=== PATIENT | male | born 1955 | race Caucasian/White ===

== ENCOUNTER → 2017-12-14 18:22 | Outpatient (REF) | payer BC, SELFPAY | LOC: LAB 18:22 | PROVIDERS: Visit Provider Physician Assistant | DX: L02.232 Carbuncle of back [any part, except buttock and flank] (principal) | CPT/HCPCS: 87070; 87075; 87077; 87147; 87205 ==

== ENCOUNTER → 2018-01-24 13:45 | Outpatient (CLI) | payer BC, SELFPAY ==
[2018-01-24 15:27] LABS: Add Manual Diff / Slide Review NO; Basophils Percent Auto 1.1 % (0-2); Eosinophils Percent Auto 0.7 % (2-4); Hematocrit 45.1 % (41-53); Hemoglobin 15.2 g/dL (13.5-17.5); Lymphocytes Percent Auto 14.6 % (25-40); Mean Corpuscular HGB Conc 33.7 % (30-36); Mean Corpuscular Volume 86.1 fL (80-100); Monocytes Percent Auto 6.2 % (3-14); Neutrophils Absolute Auto 7800 /uL (3000-5900); Neutrophils Percent Auto 77.4 % (50-75); Platelet Count 324 X10^3/uL (150-400); Red Blood Cell Count 5.24 X10^6/uL (4.5-5.9); Red Cell Distribution Width 13.1 % (11.6-14.8); White Blood Cell Count 10.1 X10^3/uL (4.5-11.0)
[2018-01-24 16:09] LABS: Alanine Aminotransferase 40 IU/L (21-72); Albumin 5.3 g/dL (3.5-5.0); Albumin Globulin Ratio 1.7 (1.0-2.8); Aspartate Aminotransferase 28 IU/L (17-59); Bilirubin Total 0.9 mg/dL (0.2-1.3); Blood Urea Nitrogen 19 mg/dL (9-20); Calcium 9.4 mg/dL (8.4-10.2); Carbon Dioxide 22 mmol/L (22-32); Chloride 97 mmol/L (98-107); Cholesterol 248 mg/dL (140-199); Estimated Glomerular Filt Rate > 60.0 mL/min (>60); Globulin 3.1 g/dL (1.7-4.1); Glucose 150 mg/dL (80-110); HDL Cholesterol 54 mg/dL (40-60); LDL Cholesterol Calculated 176 mg/dL (<100); Potassium 4.5 mmol/L (3.4-5.1); Sodium 137 mmol/L (137-145); Total Protein 8.4 g/dL (6.3-8.2); Triglycerides 88 mg/dL (35-150)
[2018-01-24 16:22] LABS: Alkaline Phosphatase 77 U/L (38-126); HEMOLYSIS < 15 (0-50)
[2018-01-24 16:36] LABS: Thyroid Stimulating Hormone 0.78 uIU/mL (0.47-4.68)
[2018-01-24 16:41] LABS: Cortisol Random 11.9 ug/dL
== END ==
PROVIDERS: Visit Provider Internal Medicine
DX: E11.9 Type 2 diabetes mellitus without complications (principal); E78.2 Mixed hyperlipidemia; Z00.00 Encounter for general adult medical examination without abnormal findings
CPT/HCPCS: 36415; 80053; 80061; 82533; 84153; 84443; 85025

== ENCOUNTER → 2018-07-13 09:53 | Outpatient (CLI) | payer BC, SELFPAY ==
--- NOTE | 2018-07-13 11:46 | DIET.PN ---
DIABETES Nutrition Initial Assessment:? ASSESS:?? 62 yom referred for type 2 diabetes. Pt is has recently started making dietary changes including cutting down on fast food and starches. Reports recent weight loss related to dietary changes since being diagnosed with diabetes. He does not have a glucometer and presents partially noncompliant with the discussion of daily BG monitoring; although very compliant with recommendations to dietary and physical activity changes. LABS: Per pt report:? A1c: 7.5 per patient recall (no A1c found in medical records) ? MEDS:?? n/a ? DIET: Has cut out most fast food and starches ? Weight: 209# (reports 15# wt loss) ? Exercise:? leisure walking 1hr/day NUTRITION DX 1. Altered Nutrition related labs related to impaired glucose metabolism, lack of previous exposure to accurate nutrition information as evidenced by pt report, dx of diabetes, previous diet high in refined carbohydrates.? INTERVENTION(s): 1. Discussed pathophysiology of diabetes. Reviewed A1c and its correlation to blood glucose numbers. Discussed recommended BG ranges. 2. Discussed importance of self-monitoring, how often, and when to check. Provided demonstration on use of glucometer. 3. Reviewed hyper/hypoglycemia and treatment. 4. Reviewed safe disposal of equipment (strip/lancets/insulin needles). 5. Discussed impact of nutrition/diet on blood sugar control.? Discussed fed versus non-fed state.?? 6. Discussed the effect of carbohydrates/protein/fat on blood sugar control.? Stressed importance of consistent carbohydrate intake at each meal and provided instructions for recommended servings/portions of carbohydrates/protein per meal. Provided pt with educational material. 7. Reviewed carbohydrate counting and measuring carbohydrate content via serving sizes and reading nutrition labels.? Provided handouts.?? 8. Discussed the difference between simple versus complex carbohydrates and the effect of fiber on blood sugar control.? Discussed various methods to increase fiber content in diet. 9. Stressed importance of meal timing and not going >4-5 hours between meals. Encouraged adding protein to each meal to support glucose control. Provided list of protein foods. Discussed best protein options for heart health and to alleviate hunger. Patient agreeable. 10. Discussed healthy weight loss through diet and exercise to increase lean muscle mass.? Pt agreeable to moderate-vigorous walking daily. MONITOR/EVALUATE: Anticipate good compliance.? Nutrition follow up schedule for 1 mo to review BG, weight, food record and discuss protein/fat.
== END ==
PROVIDERS: Visit Provider Internal Medicine
DX: E11.9 Type 2 diabetes mellitus without complications (principal)
CPT/HCPCS: 97802

== ENCOUNTER → 2019-11-23 07:52 | Outpatient (CLI) | payer OTHER, SELFPAY ==
[2019-11-23 10:03] LABS: BUN Creatinine Ratio 17.4 (6-22); Blood Urea Nitrogen 16 mg/dL (9-20); Calcium 9.5 mg/dL (8.4-10.2); Carbon Dioxide 24 mmol/L (22-32); Chloride 103 mmol/L (98-107); Cholesterol 171 mg/dL (140-199); Estimated Glomerular Filt Rate > 60.0 mL/min (>60); Glucose 149 mg/dL (80-110); HDL Cholesterol 54 mg/dL (40-60); HEMOLYSIS < 15 (0-50); LDL Cholesterol Calculated 91 mg/dL (<100); Potassium 4.4 mmol/L (3.4-5.1); Sodium 136 mmol/L (137-145); Triglycerides 129 mg/dL (35-150)
[2019-11-23 10:32] LABS: Prostate Specific Antigen Scrn 2.97 ng/mL (0.1-4.0)
== END ==
PROVIDERS: PCP Student in an Organized Health Care Education/Training Program; Referring Provider Student in an Organized Health Care Education/Training Program; Visit Provider Student in an Organized Health Care Education/Training Program
DX: Z12.5 Encounter for screening for malignant neoplasm of prostate (principal); E78.2 Mixed hyperlipidemia
CPT/HCPCS: 36415; 80048; 80061; G0103

== ENCOUNTER → 2020-10-27 16:10 | Outpatient (CLI) | payer OTHER, SELFPAY ==
[2020-10-27 16:58] LABS: BUN Creatinine Ratio 20.5 (6-22); Blood Urea Nitrogen 18 mg/dL (9-20); Calcium 9.1 mg/dL (8.4-10.2); Carbon Dioxide 24 mmol/L (22-32); Chloride 102 mmol/L (98-107); Estimated Glomerular Filt Rate > 60.0 mL/min (>60); Glucose 180 mg/dL (80-110); HEMOLYSIS < 15 (0-50); Potassium 3.8 mmol/L (3.4-5.1); Sodium 135 mmol/L (137-145)
[2020-10-27 17:31] LABS: Prostate Specific Antigen Scrn 3.14 ng/mL (0.1-4.0)
== END ==
PROVIDERS: PCP Student in an Organized Health Care Education/Training Program; Referring Provider Student in an Organized Health Care Education/Training Program; Visit Provider Student in an Organized Health Care Education/Training Program
DX: Z12.5 Encounter for screening for malignant neoplasm of prostate (principal); I10 Essential (primary) hypertension
CPT/HCPCS: 36415; 80048; G0103

== ENCOUNTER 2021-06-01 16:11 | Emergency (ER) | payer OTHER, SELFPAY ==
[2021-06-01 16:15] VITALS: BP 142/70; PULSE 86; RESP 18; TEMP 36.2; O2SAT 98; BMI 30.1
--- NOTE | 2021-06-01 19:08 | ED.FALL ---
HPI - Fall General Chief Complaint: Fall Stated Complaint: Fell, hit head on stone steps Time Seen by Provider: 06/01/21 18:23 Source: patient Mode of arrival: Ambulatory History of Present Illness HPI Narrative: 65-year-old male former smoker with history of hypertension and hyperlipidemia presents with his for evaluation of a ground level fall with facial lacerations. He was walking outside and his feet became entangled in a cannabis tarp and he fell forward into some stone steps. He struck his forehead on the ground and suffered lacerations as mentioned. He does not take blood thinners denies loss of consciousness nor nausea or vomiting. He has been acting at baseline per his own admission and this is verified by his . He denies any neck or back pain. He denies any numbness, tingling or weakness of extremities. Related Data Previous Rx's Medication Instructions Recorded felodipine 10 mg tablet,extended 10 mg PO DAILY #90 tab 10/27/20 release 24 hr lisinopril 20 mg tablet 20 mg PO DAILY #90 tab 10/27/20 omeprazole 20 mg capsule,delayed 20 mg PO DAILY #90 cap 10/27/20 release rosuvastatin 10 mg tablet 10 mg PO DAILY #90 tab 11/02/20 Allergies Allergy/AdvReac Type Severity Reaction Status Date / Time No Known Drug Allergies Allergy Verified 06/01/21 16:22 Review of Systems Review of Systems Narrative: GENERAL: Denies chills, fatigue, malaise, fever, sweats. HEENT: Denies sinus pain, ear pain, sore throat, difficulty swallowing, dizziness. RESPIRATORY: Denies dyspnea, cough, wheezing, hemoptysis, sputum. CARDIOVASCULAR: Denies chest pain, palpitations, orthopnea, edema, GASTROINTESTINAL: Denies nausea, vomiting, abdominal pain, diarrhea, constipation, melena. : Denies dysuria, frequency, incontinence, hematuria, urinary retention. MUSCULOSKELETAL: denies weakness, joint pain, or bony pain SKIN:see HPI NEUROLOGIC: Denies weakness, headache, numbness, change in speech, confusion, seizures, incoordination. PSYCHIATRIC: No concerning psychosocial issues. 12 point review of systems is negative except for those stated above Patient History Social History Smoking Status: Former smoker Smoking Status: Former smoker alcohol intake frequency: a few times a week Substance Use Type: does not use Exam Narrative Exam Narrative: GENERAL: [65] year old patient appears stated age. Well-developed patient, in mild distress. GCS 15 HEAD: Forehead injury noted including 3 lacerations, no evidence of depressed skull fracture or hematoma. Laceration 1. In the midline runs parallel to Naa's lines and measures 3 cm, this is deep with active bleeding, no evidence of foreign body. Laceration 2. Measures 0.5 cm in central forehead. Laceration 3. Is deep, regular with active bleeding measuring 3 cm without evidence of foreign body EYES: Pupils equal round and reactive. Extraocular motions intact. No scleral icterus. No injection or drainage. ENT: Nose without bleeding, purulent drainage. Throat without erythema, tonsillar hypertrophy or exudate. Airway patent. NECK: Trachea midline. Non tender CARDIOVASCULAR: Regular rate and rhythm without murmurs, gallops, or rubs. RESPIRATORY: Clear to auscultation. Breath sounds equal bilaterally. No wheezes, rales, or rhonchi. GASTROINTESTINAL: Abdomen soft, non-tender, nondistended. EXTREMITIES: No edema or joint tenderness. BACK: Nontender without deformity or crepitance. No flank tenderness. NEURO: AOx3. SKIN: No rash or erythema of visible areas Initial Vital Signs Initial Vital Signs: Vital Signs Temperature 97.2 F L 06/01/21 16:15 Pulse Rate 86 06/01/21 16:15 Respiratory Rate 18 06/01/21 16:15 Blood Pressure 142/70 H 06/01/21 16:15 Pulse Oximetry 98 06/01/21 16:15 Procedures Laceration Repair Laceration 1: Site: face Size (cm): 3 Description: irregular and clean Depth: involves muscle layer Local Anesthetic: lidocaine 1% and with bicarb Amount of anesthesia used (mL): 4 Pre-repair: wound explored and deep structures intact Skin layer closed with: nylon Size (cm): 6-0 Number of sutures: 8 Technique: simple, interrupted Subcutaneous layer closed with: vicryl Size: 4-0 Number of sutures: 2 Technique: simple, interrupted Laceration 2: Site: face Size (cm): 0.5 Description: linear Depth: simple, single layer Local Anesthetic: lidocaine 1% and with bicarb Amount of anesthesia used (mL): 2 Pre-repair: wound explored and deep structures intact Skin layer closed with: nylon Size (cm): 6-0 Number of sutures: 1 Technique: simple, interrupted Laceration 3: Site: face Side (If applicable): left Size (cm): 3 Description: irregular Depth: involves muscle layer Local Anesthetic: lidocaine 1% and with bicarb Amount of anesthesia used (mL): 4 Pre-repair: wound explored Skin layer closed with: nylon Size (cm): 6-0 Number of sutures: 7 Technique: simple, interrupted Subcutaneous layer closed with: vicryl Size: 4-0 Number of sutures: 2 Technique: simple, interrupted Scores Green[place]ic CT Head Rule Age <16 years old: No Patient on blood thinners: No Seizure after injury: No Exclusion: Patient NOT Excluded, Proceed to next steps GCS < 15 at 2 hr post trauma: No Suspected open or depressed skull fracture: No Any sign of basilar skull fracture (hemotympanum, raccoon eyes, Dailey's sign, CSF henry-/rhinorrhea): No Two or more episodes of vomiting: No Age greater or equal to 65 years: No Retrograde amnesia to the event greater or equal to 30 min: No Dangerous Mechanism (pedestrian vs. mv, occupant ejected from mv, fall from >3 ft or > 5 stairs): No Recommendation: CT unnecessary Course Orders Ordered: Discontinued Medications Lidocaine/Sodium Bicarbonate (Lido 1%/Sod Bicarb 8.4% (10ml) 10 Ml Syringe) 10 ml INJ NOW ONE Stop: 06/01/21 19:14 Last Admin: 06/01/21 19:17 Dose: 10 ml Documented by: KPETERSON Vital Signs Vital signs: Vital Signs - 8 hr 06/01/21 16:15 06/01/21 20:03 Temperature 97.2 F L Pulse Rate 86 74 Respiratory Rate 18 Blood Pressure 142/70 H 140/85 Pulse Oximetry 98 99 Discharge Plan Departure Patient Disposition: Home Clinical Impression: Complex laceration of face Instructions: DI for Laceration Repair -- Complex, How to Prevent Falls Activity Restrictions/Additional Instructions: *You have been diagnosed with [facial contusion with multiple lacerations ] *What to do: *Please continue to take your regular medications as directed. [ ] New medication prescriptions sent to your pharmacy: [ ] [ ] New medication written as a paper prescription [x ] No new medications given * Please keep the wound clean and dry to the best of your ability. Please monitor for signs of infection such as redness to the skin or increasing pain. Have the sutures/jeanie removed by your doctor in about 7 days. If you are unable to get into your doctor, we would be happy to remove the sutures/jeanie in that same timeframe. *If you do not have a primary care provider please contact the [facility] Resource line at [phone]. They will ask some questions about your medical history and help get you set up with a doctor in the community. *Return to Emergency Department if you should have any new, worsening or concerning symptoms, such as [fever greater than 101 F, shaking chills, worsening pain, persistent vomiting or other bothersome symptoms] Prescriptions: No Action felodipine 10 mg tablet extended release 24 hr 10 mg PO DAILY Qty: 90 3RF lisinopril 20 mg tablet 20 mg PO DAILY Qty: 90 3RF omeprazole 20 mg capsule,delayed release(DR/EC) 20 mg PO DAILY Qty: 90 3RF rosuvastatin 10 mg tablet 10 mg PO DAILY Qty: 90 3RF Referrals: Sixto Currie MD [Primary Care Provider] -
[2021-06-01] MEDS: LIDO 1%/SOD BICARB 8.4% (10ML) 10 ML SYRINGE INJ (19:17)
[2021-06-01 20:03] VITALS: BP 140/85; PULSE 74; O2SAT 99
== END 2021-06-01 20:00 | disposition home or self-care (01) ==
PROVIDERS: Emergency Provider Emergency Medicine; PCP Student in an Organized Health Care Education/Training Program
DX: S01.81XA Laceration without foreign body of other part of head, initial encounter (principal); W01.198A Fall on same level from slipping, tripping and stumbling with subsequent striking against other object, initial encounter
CPT/HCPCS: 12011; 13132; 99282; 99283

== ENCOUNTER → 2022-02-01 08:25 | Outpatient (CLI) | payer MEDICARE, OTHER, SELFPAY ==
[2022-02-01 09:26] LABS: Hemoglobin A1C% w Est Avg Glu 9.6 % (4.0-6.0)
[2022-02-01 09:30] LABS: Alanine Aminotransferase 36 IU/L (<50); Albumin 4.8 g/dL (3.5-5.0); Albumin Globulin Ratio 1.3 (1.0-2.8); Alkaline Phosphatase 89 U/L (38-126); Aspartate Aminotransferase 39 IU/L (17-59); BUN Creatinine Ratio 16.8 (6-22); Bilirubin Total 0.6 mg/dL (0.2-1.3); Blood Urea Nitrogen 16 mg/dL (9-20); Calcium 8.9 mg/dL (8.4-10.2); Carbon Dioxide 21 mmol/L (22-32); Chloride 101 mmol/L (98-107); Estimated Glomerular Filt Rate > 60 mL/min (>60); Globulin 3.6 g/dL (1.7-4.1); Glucose 242 mg/dL (80-110); HEMOLYSIS < 15 (0-50); Potassium 4.2 mmol/L (3.4-5.1); Sodium 136 mmol/L (137-145); Total Protein 8.4 g/dL (6.3-8.2)
[2022-02-01 10:00] LABS: Prostate Specific Antigen Scrn 3.58 ng/mL (0.1-4.0)
[2022-02-01 10:43] LABS: Hep C Virus Ab w/Reflex Quant NEGATIVE s/c (NEGATIVE)
== END ==
PROVIDERS: PCP Student in an Organized Health Care Education/Training Program; Referring Provider Student in an Organized Health Care Education/Training Program; Visit Provider Student in an Organized Health Care Education/Training Program
DX: R73.9 Hyperglycemia, unspecified (principal); Z12.5 Encounter for screening for malignant neoplasm of prostate; E78.2 Mixed hyperlipidemia; I10 Essential (primary) hypertension; Z11.59 Encounter for screening for other viral diseases
CPT/HCPCS: 36415; 80053; 83036; 86803; G0103

== ENCOUNTER → 2022-02-04 09:25 | Outpatient (CLI) | payer MEDICARE, OTHER, SELFPAY ==
[2022-02-07 16:23] LABS: Fecal Immunochemical Test Negative (Negative)
== END ==
PROVIDERS: PCP Student in an Organized Health Care Education/Training Program; Referring Provider Student in an Organized Health Care Education/Training Program; Visit Provider Student in an Organized Health Care Education/Training Program
DX: Z12.11 Encounter for screening for malignant neoplasm of colon (principal)
CPT/HCPCS: 82274

== ENCOUNTER → 2022-05-03 10:46 | Outpatient (CLI) | payer MEDICARE, OTHER, SELFPAY ==
--- NOTE | 2022-05-11 11:10 | DIAB.MNT ---
Initial Diabetes Medical Nutrition Therapy Assessment Name: Jhony Rosario Date: 05/03/22 Time: 11-140a Dx: Type II Diabetes Provider: Roseyjeremiah Booker presents for initial diabetes visit. Saw previous CDCES in 2019. States he has no symptoms of DM or pressing concerns, though has HgA1c of 9.6% as of Jan 2022. States he is good at weight loss and intends to do so. Does not like fish of any kind. usually eats 2-3x per day. Limited water intake per report. Diet coke 5 x 12oz cans per day. Diet Recall: 8-10a: overnight oats x 2c with banana, coconut 1130a: nothing or turkey sandwich 6p: cheeseburger OR chicken teriyaki with pea and rice x 1c OR pasta Anthropometrics: Ht: 5'10 Wt: 212# last PCP Physical Activity:60+ min walks daily. sit-ups q day Self-Monitoring Blood Glucose: None. With recent HgA1c may benefit from SMBG. Diabetes Medications: 500mg Metformin BID Pertinent Labs: 01/2022 HgA1c: 9.6% no new lipids Nutrition Rx: Plate Method Nutrition Diagnosis: - Food and nutrition related knowledge deficit r/t limited MNT hx aeb one visit with last CDCES - Excessive CHO intake r/t nutrition knowledge deficit aeb pt report and diet recall - Self monitoring deficit r/t knowledge deficit aeb pt report Intervention: This participant was very receptive. Provided appropriate educational handouts. Discussed the following topics: Completed intake assessment. Discussed barriers to care. Pathophysiology of T2DM HgA1c, its correlation to blood glucose numbers, and rationale for goal Importance of self-monitoring, how often, and when to check. Suggested checking at different times to evaluate meals Plate Method, impact of macronutrients on blood sugar, meal timing, carbohydrate counting, pairing macronutrients and spreading out carbohydrates for better blood glucose management Recommended servings for carbohydrates at meals and snacks Heart health and DM Role of physical activity Stage of change Created SMART goals for patient self-care and success. Goals: Manage CHO portions, as discussed Chat with about diet changes Aim for small frequent meals/snacks Follow-up: [facility] MEDINA follow-up in 4 weeks. Offered DSME classes, but declined at this time. Some concerns for stage of change given lack of impact DM is having on him as he can perceive. Discussed this today. Yessenia Gibson RDN, [facility] Certified Diabetes Care and Museum Security Chief P: [phone] Thank you for this referral
== END ==
PROVIDERS: PCP Student in an Organized Health Care Education/Training Program; Referring Provider Student in an Organized Health Care Education/Training Program; Visit Provider Student in an Organized Health Care Education/Training Program
DX: E11.9 Type 2 diabetes mellitus without complications (principal); Z71.3 Dietary counseling and surveillance; Z79.84 Long term (current) use of oral hypoglycemic drugs
CPT/HCPCS: 97802

== ENCOUNTER → 2022-05-16 08:37 | Outpatient (CLI) | payer MEDICARE, OTHER, SELFPAY ==
[2022-05-16 10:32] LABS: Microalbumin Urine Random 1.6 mg/dL (0-1.6)
[2022-05-16 10:37] LABS: Creatinine Urine Random 169.1 mg/dL; Microalbumi Creatinin Ratio Ur 9.4 ug/mg CR (<30)
[2022-05-16 11:33] LABS: Cholesterol 160 mg/dL (140-199); HDL Cholesterol 56 mg/dL (40-60); LDL Cholesterol Calculated 88 mg/dL (<100); Triglycerides 81 mg/dL (35-150)
== END ==
PROVIDERS: PCP Student in an Organized Health Care Education/Training Program; Referring Provider Student in an Organized Health Care Education/Training Program; Visit Provider Student in an Organized Health Care Education/Training Program
DX: E11.69 Type 2 diabetes mellitus with other specified complication (principal); E78.5 Hyperlipidemia, unspecified
CPT/HCPCS: 36415; 80061; 82043; 82570; 83036

== ENCOUNTER → 2022-06-01 09:18 | Outpatient (CLI) | payer MEDICARE, OTHER, SELFPAY ==
--- NOTE | 2022-06-07 17:00 | DIAB.MNTFU ---
Follow-up Diabetes Medical Nutrition Therapy Assessment Name: Jhony Rosario Date: 06/01/22 Time: 935-10a Dx: Type II Diabetes Provider: Rosey Booker presents today for Dm follow-up. Reports smaller food portions since last visit and no sweets in last two weeks. Has reduced pasta and essentially cut carb portions in half or out of meal per report. Has spoken with about diet changes, she is supportive. Diet Recall: 7a: banana 11a: leftovers, ie meatloaf with cheese sn: low carb snacks/bar 6p: salad with chx OR meatloaf with salad OR steak and carrots Beverages: water not enough, diet coke Anthropometrics: Ht: 5'10 Wt: 212# last PCP Physical Activity: Increased to 60+ min walks BID. Self-Monitoring Blood Glucose: None. With recent HgA1c may benefit from SMBG, but he is clear that he does not want to administer finger sticks at this time. Diabetes Medications: 750mg Metformin TID (has not started higher dose) Pertinent Labs: 05/2022 HgA1c:8% cholesterol: 160 LDL: 88 HDL:56 T 01/2022 HgA1c:9.6% Nutrition Rx: Plate Method Nutrition Diagnosis: - Food and nutrition related knowledge deficit r/t limited MNT hx aeb one visit with last CDCES- in progress - Excessive CHO intake r/t nutrition knowledge deficit aeb pt report and diet recall - improved - Self monitoring deficit r/t stage of change pre contemplative aeb pt report - new - Predicted inadequate fluid intake r/t limited water aeb pt report - new Intervention: This participant was very receptive. Provided appropriate educational handouts. Discussed the following topics: Blood sugar review and trends. Impact of food intake on results. Plate Method, impact of macronutrients on blood sugar, meal timing, carbohydrate counting, pairing macronutrients and spreading out carbohydrates for better blood glucose management Heart health nutrition: fats, fiber, and sodium Eating out and grocery shopping tips Meal planning and carb counting review Physical activity plan and progress Created SMART goals for patient self-care and success. Goals: Manage CHO portions, as discussed- improved Chat with about diet changes- met Aim for small frequent meals/snacks- no change Try to increase water intake- new Add protein to breakfast- new Start new Metformin rx-new Keep carbs to 1c if having- new Follow-up: ODILON MEDINA follow-up in July. Seems he would like more time between visits. Sees PCP in August. Yessenia Gibson, [facility]IL[facility], [facility] Certified Diabetes Care and Master Naval Parachutist P: [phone] Thank you for this referral
== END ==
PROVIDERS: PCP Student in an Organized Health Care Education/Training Program; Referring Provider Student in an Organized Health Care Education/Training Program
DX: E11.9 Type 2 diabetes mellitus without complications (principal); Z79.84 Long term (current) use of oral hypoglycemic drugs; Z71.3 Dietary counseling and surveillance
CPT/HCPCS: 97803

== ENCOUNTER → 2022-08-17 08:10 | Outpatient (CLI) | payer MEDICARE, OTHER, SELFPAY ==
[2022-08-17 09:01] LABS: Cholesterol 126 mg/dL (140-199); HDL Cholesterol 66 mg/dL (40-60); LDL Cholesterol Calculated 43 mg/dL (<100); Triglycerides 87 mg/dL (35-150)
[2022-08-17 09:50] LABS: Vitamin B12 194 pg/mL (239-931)
[2022-08-18 05:32] LABS: x Labcorp Estim. Avg Glu (eAG) 137 mg/dL (.); x Labcorp Hemoglobin A1c 6.4 % (4.8-5.6)
--- NOTE | 2022-09-01 14:51 | DIAB.MNTFU ---
Follow-up Diabetes Medical Nutrition Therapy Assessment Name: Jhony Rosario Date: 08/17/22 Time: 9035-5527k Dx: Type II Diabetes Provider: Rosey Jhony presents for DM follow-up. Completed lab work prior to our visit. HgA1c pending at the time of this appt. States he has continued on lower carb diet. Some concerns for [place] trip next week and food options. Saw health safety specialist this week. Dentist q 6 months. Checks feet. No changes in symptoms in general, though admits that he never really had DM symptoms. States he has not increased water intake and drinks more diet coke than he would like to share. Overall, meals are in goal for CHO intake. Diet Recall: 7a: banana and Ukrainian yogurt 11a: sandwich sn: low carb bar 6p: meatloaf and salad OR chicken and salad Beverages: water 16oz, diet coke Anthropometrics: Ht: 5'10 Wt: 215# last reported Physical Activity: 60 min walks 1-2x per day Self-Monitoring Blood Glucose: None. Not open to this at this time. Diabetes Medications: 750mg Metformin TID (has not started higher dose) Pertinent Labs: 05/2022 HgA1c:8% cholesterol: 160 LDL: 88 HDL:56 T 01/2022 HgA1c:9.6% Nutrition Rx: Plate Method Nutrition Diagnosis: - Food and nutrition related knowledge deficit r/t limited MNT hx aeb one visit with last ADAM- in progress - Self monitoring deficit r/t stage of change pre contemplative aeb pt report - continued - Predicted inadequate fluid intake r/t limited water aeb pt report - continued Intervention: This participant was very receptive. Provided appropriate educational handouts. Discussed the following topics: Reviewed diabetes complication reduction and keeping eye, dental appts, and checking feet Discussed nutrition plan and sustainability Encouraged water intake for DM and overall health Goals: Try to increase water intake- in progress Add protein to breakfast- met Start new Metformin rx-met Keep carbs to 1c if having- met Follow-up: ODILON MEDINA follow-up prn per pt request. Encouraged him to call or message with any follow-up needs or questions. He agreed to this plan. Yessenia Gibson RDN, [facility] Certified Diabetes Care and Leather Seasoner P: [phone] Thank you for this referral
== END ==
PROVIDERS: PCP Student in an Organized Health Care Education/Training Program; Referring Provider Student in an Organized Health Care Education/Training Program; Visit Provider Student in an Organized Health Care Education/Training Program
DX: E11.69 Type 2 diabetes mellitus with other specified complication; E78.5 Hyperlipidemia, unspecified; T50.905A Adverse effect of unspecified drugs, medicaments and biological substances, initial encounter
CPT/HCPCS: 36415; 80061; 82607; 83036; 97803

== ENCOUNTER → 2023-04-06 10:16 | Outpatient (CLI) | payer MEDICARE, OTHER, SELFPAY ==
[2023-04-06 11:10] LABS: Hemoglobin A1C% w Est Avg Glu 6.8 % (4.0-6.0)
[2023-04-06 11:33] LABS: Alanine Aminotransferase 28 IU/L (<50); Albumin 4.7 g/dL (3.5-5.0); Albumin Globulin Ratio 1.6 (1.0-2.8); Alkaline Phosphatase 63 U/L (38-126); Aspartate Aminotransferase 28 IU/L (17-59); Bilirubin Total 0.6 mg/dL (0.2-1.3); Blood Urea Nitrogen 16 mg/dL (9-20); Calcium 9.7 mg/dL (8.4-10.2); Carbon Dioxide 26 mmol/L (22-32); Chloride 98 mmol/L (98-107); Estimated Glomerular Filt Rate > 60 mL/min (>60); Glucose 130 mg/dL (80-110); HEMOLYSIS < 15 (0-50); Potassium 5.1 mmol/L (3.4-5.1); Sodium 135 mmol/L (137-145); Total Protein 7.7 g/dL (6.3-8.2)
[2023-04-06 11:53] LABS: Prostate Specific Antigen Scrn 4.12 ng/mL (0.1-4.0)
[2023-04-06 12:12] LABS: Vitamin B12 637 pg/mL (239-931)
== END ==
PROVIDERS: PCP Family Medicine; Referring Provider Physician Assistant; Visit Provider Physician Assistant
DX: Z12.5 Encounter for screening for malignant neoplasm of prostate (principal); E11.69 Type 2 diabetes mellitus with other specified complication; E78.5 Hyperlipidemia, unspecified; E11.9 Type 2 diabetes mellitus without complications; E53.8 Deficiency of other specified B group vitamins
CPT/HCPCS: 36415; 80053; 82607; 83036; G0103

== ENCOUNTER → 2023-04-14 09:10 | Outpatient (CLI) | payer MEDICARE, OTHER, SELFPAY ==
[2023-04-17 16:47] LABS: Fecal Immunochemical Test Negative (Negative)
== END ==
LOC: LAB 09:12
PROVIDERS: PCP Family Medicine; Referring Provider Family Medicine; Visit Provider Family Medicine
DX: Z12.11 Encounter for screening for malignant neoplasm of colon (principal)
CPT/HCPCS: 82274

== ENCOUNTER → 2023-07-26 08:29 | Outpatient (CLI) | payer MEDICARE, OTHER, SELFPAY ==
[2023-07-26 09:30] LABS: Hemoglobin A1C% w Est Avg Glu 7.7 % (4.0-6.0)
== END ==
PROVIDERS: PCP Family Medicine; Referring Provider Family Medicine; Visit Provider Family Medicine
DX: Z12.5 Encounter for screening for malignant neoplasm of prostate (principal); E11.9 Type 2 diabetes mellitus without complications; R97.20 Elevated prostate specific antigen [PSA]
CPT/HCPCS: 36415; 83036; G0103

== ENCOUNTER → 2024-01-23 06:55 | Outpatient (CLI) | payer MEDICARE, OTHER, SELFPAY ==
[2024-01-23 08:20] LABS: Hemoglobin A1C% w Est Avg Glu 7.6 % (4.0-6.0)
[2024-01-23 08:23] LABS: Alanine Aminotransferase 27 IU/L (<50); Albumin 4.8 g/dL (3.5-5.0); Albumin Globulin Ratio 1.8 (1.0-2.8); Alkaline Phosphatase 84 U/L (38-126); Aspartate Aminotransferase 26 IU/L (17-59); BUN Creatinine Ratio 17.4 (6-22); Bilirubin Total 0.8 mg/dL (0.2-1.3); Blood Urea Nitrogen 16 mg/dL (9-20); Calcium 9.7 mg/dL (8.4-10.2); Carbon Dioxide 23 mmol/L (22-32); Chloride 102 mmol/L (98-107); Estimated Glomerular Filt Rate > 60 mL/min (>60); Globulin 2.7 g/dL (1.7-4.1); Glucose 189 mg/dL (80-110); HEMOLYSIS < 15 (0-50); Potassium 5.3 mmol/L (3.4-5.1); Sodium 136 mmol/L (137-145); Total Protein 7.5 g/dL (6.3-8.2)
== END ==
LOC: LAB 06:56
PROVIDERS: PCP Family Medicine; Referring Provider Family Medicine; Visit Provider Family Medicine
DX: E11.9 Type 2 diabetes mellitus without complications (principal); I10 Essential (primary) hypertension
CPT/HCPCS: 36415; 80053; 83036

== ENCOUNTER → 2024-05-24 07:02 | Outpatient (CLI) | payer MEDICARE, OTHER, SELFPAY ==
[2024-05-24 07:32] LABS: Hematocrit 41.9 % (41-53); Hemoglobin 14.1 g/dL (13.5-17.5); Mean Corpuscular HGB Conc 33.6 % (30-36); Mean Corpuscular Hemoglobin 29.3 PG (26-34); Platelet Count 276 X10^3/uL (150-400); Red Blood Cell Count 4.82 X10^6/uL (4.5-5.9); Red Cell Distribution Width 13.6 % (11.6-14.8); White Blood Cell Count 7.6 X10^3/uL (4.5-11.0)
[2024-05-24 08:04] LABS: Blood Urea Nitrogen 23 mg/dL (9-20); Calcium 9.7 mg/dL (8.4-10.2); Carbon Dioxide 25 mmol/L (22-32); Chloride 101 mmol/L (98-107); Cholesterol 166 mg/dL (140-199); Estimated Glomerular Filt Rate > 60 mL/min (>60); Glucose 163 mg/dL (80-110); HDL Cholesterol 62 mg/dL (40-60); HEMOLYSIS < 15 (0-50); LDL Cholesterol Calculated 80 mg/dL (<100); Potassium 4.8 mmol/L (3.4-5.1); Sodium 136 mmol/L (137-145); Triglycerides 118 mg/dL (35-150)
[2024-05-24 08:35] LABS: Prostate Specific Antigen Scrn 4.39 ng/mL (0.1-4.0)
[2024-05-24 08:54] LABS: Vitamin B12 320 pg/mL (239-931)
== END ==
PROVIDERS: PCP Family Medicine; Referring Provider Family Medicine; Visit Provider Family Medicine
DX: E53.8 Deficiency of other specified B group vitamins (principal); E11.69 Type 2 diabetes mellitus with other specified complication; Z12.5 Encounter for screening for malignant neoplasm of prostate; E78.5 Hyperlipidemia, unspecified; I10 Essential (primary) hypertension; E11.9 Type 2 diabetes mellitus without complications
CPT/HCPCS: 36415; 80048; 80061; 82607; 83036; 85027; G0103

== ENCOUNTER → 2025-01-10 06:59 | Outpatient (CLI) | payer MEDICARE, OTHER, SELFPAY ==
[2025-01-10 08:12] LABS: Hemoglobin A1C% w Est Avg Glu 7.5 % (4.0-6.0)
[2025-01-10 08:23] LABS: Blood Urea Nitrogen 19 mg/dL (9-20); Calcium 9.5 mg/dL (8.4-10.2); Carbon Dioxide 25 mmol/L (22-32); Chloride 102 mmol/L (98-107); Estimated Glomerular Filt Rate > 60 mL/min (>60); Glucose 170 mg/dL (70-99); HEMOLYSIS < 15 (0-50); Potassium 5.2 mmol/L (3.4-5.1); Sodium 139 mmol/L (137-145)
== END ==
PROVIDERS: PCP Family Medicine; Referring Provider Family Medicine; Visit Provider Family Medicine
DX: E11.69 Type 2 diabetes mellitus with other specified complication (principal); Z12.5 Encounter for screening for malignant neoplasm of prostate; R97.20 Elevated prostate specific antigen [PSA]; E78.5 Hyperlipidemia, unspecified
CPT/HCPCS: 36415; 80048; 83036; G0103